=== PATIENT | male | born 1985 | race Caucasian/White ===

== ENCOUNTER 2017-02-17 14:32 | Emergency (ER) | payer OTHER ==
[~2017-02-17] VITALS: Ht 177.8 cm; Wt 80.0 kg
[~2017-02-17 14:32] MED LIST: OMEG100037 PO; PROM25SU8 PO; VIST50CA PO; [UNRECOGNIZED DRUG - OTHER] PO
[2017-02-17 14:34] VITALS: BP 117/64; PULSE 93; RESP 18; TEMP 97.4; O2SAT 97
[2017-02-17] MEDS ORDERED: SODIUM CHLORIDE 0.9% FLUSH 10 ML FLUSH IV FLUSH PRN (15:45)
[2017-02-17 16:16] VITALS: O2SAT 99
[2017-02-17 16:17] LABS: AUTOMATED NEUTROPHIL # 2.9 TH/MM3 (1.8-7.7); BASOPHIL % 0.7 % (0.0-2.0); EOSINOPHIL # 0.2 TH/MM3 (0-0.4); EOSINOPHIL % 2.4 % (0.0-4.0); HEMATOCRIT 44.1 % (39.0-51.0); HEMO FLAGS DIFF FINAL; LYMPH % 47.2 % (9.0-44.0); LYMPHOCYTE # 3.4 TH/MM3 (1.0-4.8); MEAN CELL VOLUME 86.1 FL (80.0-100.0); MEAN CORPUSCULAR HEMOGLOBIN 30.6 PG (27.0-34.0); MEAN CORPUSCULAR HGB CONC 35.5 % (32.0-36.0); MONO % 9.7 % (0.0-8.0); PLATELET COUNT 226 TH/MM3 (150-450); RED BLOOD COUNT 5.12 MIL/MM3 (4.50-5.90); RED CELL DISTRIBUTION WIDTH 13.3 % (11.6-17.2); WHITE BLOOD COUNT 7.2 TH/MM3 (4.0-11.0)
[2017-02-17 16:33] LABS: ALKALINE PHOSPHATASE 57 U/L (45-117); TOTAL BILIRUBIN ADULT 0.4 MG/DL (0.2-1.0)
[2017-02-17 16:35] LABS: ALT (GPT) 22 U/L (12-78); ANION GAP 7 MEQ/L (5-15); AST (GOT) 23 U/L (15-37); BLOOD UREA NITROGEN 12 MG/DL (7-18); CHLORIDE 105 MEQ/L (98-107); GLOMERULAR FILTRATION RATE 104 ML/MIN (>89); POTASSIUM 4.5 MEQ/L (3.5-5.1); SODIUM (NA) 141 MEQ/L (136-145)
--- NOTE | 2017-02-17 17:25 | PD ---
HPI Chief Complaint: GI Complaint Time Seen by Provider: 16:57 Travel History International Travel<30 days: No Contact w/Intl Traveler<30days: No History of Present Illness HPI Patient is a 31-year-old male comes in complaining of intractable hiccups. He says happened him once before about a year and a half ago, and lasted 10 days. He says currently he is had hiccups for the past 2 days and he is very worried. He says he wants to know the cause of his hiccups. He says he had an episode of nausea prior to this starting, but since then has otherwise been asymptomatic. He is not having any pain. He denies any chest pain or shortness of breath. He has no medical problems and takes no medications. PFSH Past Medical History Medical History: Denies Significant Hx Hx Anticoagulant Therapy: No Autoimmune Disease: No Blood Disorders: No Anxiety: No Depression: No Cancer: No Cardiovascular Problems: No Chemotherapy: No Cerebrovascular Accident: No Diabetes: No Diminished Hearing: No Endocrine: No Gastrointestinal Disorders: Yes (HX OF IRRITABLE BOWEL SYND) Genitourinary: No Musculoskeletal: No Neurologic: No Psychiatric: No Respiratory: No Immunizations Current: Yes Past Surgical History Surgical History: No Previous Surgery Social History Alcohol Use: No Tobacco Use: No (/2 ppd) Substance Use: No Allergies-Medications (Allergen,Severity, Reaction): Coded Allergies: No Known Allergies (Verified , 02/17/17) Reported Meds & Prescriptions Reported Meds & Active Scripts Active No Active Prescriptions or Reported Medications Review of Systems Except as stated in HPI: all other systems reviewed are Neg General / Constitutional: No: Fever, Chills Eyes: No: Blurred Vision HENT: No: Headaches, Lightheadedness Cardiovascular: No: Chest Pain or Discomfort Respiratory: No: Shortness of Breath Gastrointestinal: Positive: Nausea, No: Vomiting, Abdominal Pain Skin: No Rash Neurologic: No: Weakness, Dizziness Physical Exam Narrative GENERAL: Awake and alert, in no acute distress. SKIN: Focused skin assessment warm/dry. HEAD: Atraumatic. Normocephalic. EYES: Pupils equal and round. No scleral icterus. ENT: Mucous membranes pink and moist. NECK: Trachea midline. No JVD. CARDIOVASCULAR: Regular rate and rhythm. No murmur appreciated. RESPIRATORY: No accessory muscle use. Clear to auscultation. Breath sounds equal bilaterally. GASTROINTESTINAL: Abdomen soft, non-tender, nondistended. MUSCULOSKELETAL: No obvious deformities. No clubbing. No cyanosis. No edema. NEUROLOGICAL: Awake and alert. No obvious cranial nerve deficits. Motor grossly within normal limits. Normal speech. PSYCHIATRIC: Appropriate mood and affect; insight and judgment normal. Data Data Last Documented VS Vital Signs Date Time Temp Pulse Resp B/P Pulse Ox O2 Delivery O2 Flow Rate FiO2 02/17/17 16:16 99 Room Air 02/17/17 14:34 97.4 93 18 117/64 Orders Complete Blood Count With Diff (02/17/17 15:37) Comprehensive Metabolic Panel (02/17/17 15:37) Lipase (02/17/17 15:37) Iv Access Insert/Monitor (02/17/17 15:37) Ecg Monitoring (02/17/17 15:37) Oximetry (02/17/17 15:37) Sodium Chloride 0.9% Flush (Ns Flush) (02/17/17 15:45) Electrocardiogram (02/17/17 15:37) Troponin I (02/17/17 15:37) Chlorpromazine Inj (Thorazine Inj) (02/17/17 17:30) Labs Laboratory Tests Test 02/17/17 15:47 White Blood Count 7.2 TH/MM3 Red Blood Count 5.12 MIL/MM3 Hemoglobin 15.7 GM/DL Hematocrit 44.1 % Mean Corpuscular Volume 86.1 FL Mean Corpuscular Hemoglobin 30.6 PG Mean Corpuscular Hemoglobin 35.5 % Concent Red Cell Distribution Width 13.3 % Platelet Count 226 TH/MM3 Mean Platelet Volume 8.6 FL Neutrophils (%) (Auto) 40.0 % Lymphocytes (%) (Auto) 47.2 % Monocytes (%) (Auto) 9.7 % Eosinophils (%) (Auto) 2.4 % Basophils (%) (Auto) 0.7 % Neutrophils # (Auto) 2.9 TH/MM3 Lymphocytes # (Auto) 3.4 TH/MM3 Monocytes # (Auto) 0.7 TH/MM3 Eosinophils # (Auto) 0.2 TH/MM3 Basophils # (Auto) 0.0 TH/MM3 CBC Comment DIFF FINAL Differential Comment Sodium Level 141 MEQ/L Potassium Level 4.5 MEQ/L Chloride Level 105 MEQ/L Carbon Dioxide Level 29.0 MEQ/L Anion Gap 7 MEQ/L Blood Urea Nitrogen 12 MG/DL Creatinine 0.85 MG/DL Estimat Glomerular Filtration 104 ML/MIN Rate Random Glucose 93 MG/DL Calcium Level 8.9 MG/DL Total Bilirubin 0.4 MG/DL Aspartate Amino Transf 23 U/L (AST/SGOT) Alanine Aminotransferase 22 U/L (ALT/SGPT) Alkaline Phosphatase 57 U/L Troponin I LESS THAN 0.02 NG/ML Total Protein 7.1 GM/DL Albumin 3.8 GM/DL Lipase 160 U/L MDM Medical Decision Making Medical Screen Exam Complete: Yes Emergency Medical Condition: Yes Medical Record Reviewed: Yes Interpretation(s) ECG shows [address] elevation in leads 2, 3, aVF, no reciprocal changes Differential Diagnosis Intractable hiccups versus electrolyte abnormality versus ACS Narrative Course Patient is a 31-year-old male comes in complaining of hiccups. Exam shows no acute abnormalities. IV established, labs sent. ECG performed shows minimal elevation in leads 2, 3, aVF. I spoke with Dr. Alva of cardiology, regarding the EKG findings. He suggests a repeat troponin and EKG in 4-6 hours. If the troponin remains negative, he can safely be discharged home to follow-up with his primary care doctor. Patient offered Thorazine for his hiccups, he does not want that at this time. Patient signed out to Dr. Hammond to follow up repeat labs and disposition the patient. Scripts No Active Prescriptions or Reported Meds Cece Pastrana MD Feb 17, 2017 17:25
[2017-02-17 18:00] VITALS: BP 115/61; PULSE 77; RESP 18; O2SAT 99
--- NOTE | 2017-02-17 18:09 | PD ---
Physical Exam Date Seen by Provider: Feb 17, 2017 Narrative Care was assumed from Dr. Gaytan is 5 PM. This patient is scheduled for a repeat troponin in a couple of hours. If the repeat troponin is negative, he can go home. The patient is here with intractable hiccups. Or the hiccups and I have ordered Thorazine. Apparently, he refused Thorazine earlier. Data Data Last Documented VS Vital Signs Date Time Temp Pulse Resp B/P Pulse Ox O2 Delivery O2 Flow Rate FiO2 02/17/17 18:00 77 18 115/61 99 Room Air 02/17/17 14:34 97.4 Orders Complete Blood Count With Diff (02/17/17 15:37) Comprehensive Metabolic Panel (02/17/17 15:37) Lipase (02/17/17 15:37) Iv Access Insert/Monitor (02/17/17 15:37) Ecg Monitoring (02/17/17 15:37) Oximetry (02/17/17 15:37) Sodium Chloride 0.9% Flush (Ns Flush) (02/17/17 15:45) Electrocardiogram (02/17/17 15:37) Troponin I (02/17/17 15:37) Chlorpromazine Inj (Thorazine Inj) (02/17/17 17:30) ^ Other Nursing Orders (02/17/17 18:11) Troponin I (02/17/17 20:45) Labs Laboratory Tests Test 02/17/17 02/17/17 15:47 20:15 White Blood Count 7.2 TH/MM3 Red Blood Count 5.12 MIL/MM3 Hemoglobin 15.7 GM/DL Hematocrit 44.1 % Mean Corpuscular Volume 86.1 FL Mean Corpuscular Hemoglobin 30.6 PG Mean Corpuscular Hemoglobin 35.5 % Concent Red Cell Distribution Width 13.3 % Platelet Count 226 TH/MM3 Mean Platelet Volume 8.6 FL Neutrophils (%) (Auto) 40.0 % Lymphocytes (%) (Auto) 47.2 % Monocytes (%) (Auto) 9.7 % Eosinophils (%) (Auto) 2.4 % Basophils (%) (Auto) 0.7 % Neutrophils # (Auto) 2.9 TH/MM3 Lymphocytes # (Auto) 3.4 TH/MM3 Monocytes # (Auto) 0.7 TH/MM3 Eosinophils # (Auto) 0.2 TH/MM3 Basophils # (Auto) 0.0 TH/MM3 CBC Comment DIFF FINAL Differential Comment Sodium Level 141 MEQ/L Potassium Level 4.5 MEQ/L Chloride Level 105 MEQ/L Carbon Dioxide Level 29.0 MEQ/L Anion Gap 7 MEQ/L Blood Urea Nitrogen 12 MG/DL Creatinine 0.85 MG/DL Estimat Glomerular Filtration 104 ML/MIN Rate Random Glucose 93 MG/DL Calcium Level 8.9 MG/DL Total Bilirubin 0.4 MG/DL Aspartate Amino Transf 23 U/L (AST/SGOT) Alanine Aminotransferase 22 U/L (ALT/SGPT) Alkaline Phosphatase 57 U/L Troponin I LESS THAN 0.02 LESS THAN 0.02 NG/ML NG/ML Total Protein 7.1 GM/DL Albumin 3.8 GM/DL Lipase 160 U/L [facility] Supervised Visit with MARIAMA: No Narrative Course Repeat troponin is less than 0.02. He will be discharged to home. Diagnosis Primary Impression: Intractable hiccups Additional Impression: Abnormal EKG Patient Instructions: General Instructions, Hiccups (DC) Med/Other Pt SpecificInfo: Prescription(s) given Scripts Chlorpromazine 25 Mg Tab50 Mg PO Q4H PRN (hiccups) #10 TAB Ref 0 Prov:Radha Hammond MD 02/17/17 Radha Hammond MD Feb 17, 2017 18:09
[2017-02-17] MEDS ORDERED: CHLO25TA38 PO (20:53)
--- NOTE | 2017-02-18 08:55 | MB ---
cc: BERTHA RIDER MD DATE OF CONSULTATION: 02/18/2017. REASON FOR CONSULTATION: Abnormal EKG. 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 The patient had one episode similar to this about 19 months ago where he had intractable hiccups for nineteen days. He does say he intermittently gets hiccups every time he eats. As part of his workup for this episode of intractable hiccups, he received an EKG which showed inferior S-T elevations. He has absolutely no chest pain or shortness of breath. In fact, as I am interviewing the patient, he is not even having hiccups at this moment, though he says they come fairly intermittently with respites lasting up to an hour. He is completely [id number]. He has no chest pain, shortness of breath, lightheadedness or dizziness. His only risk factor is ongoing tobacco use and a family history of coronary artery disease, though not premature coronary artery disease. PAST MEDICAL HISTORY: 1. Intractable hiccups. 2. Tobacco abuse. HOME MEDICATIONS: None. PHYSICAL EXAMINATION: VITAL SIGNS: Afebrile, pulse 93, respiratory rate 18, blood pressure 117/64, satting 99 on room air. GENERAL: A very pleasant well-appearing young gentleman in no distress. NECK: No jugular venous distention. LUNGS: Clear to auscultation bilaterally. CARDIOVASCULAR: Regular rate and rhythm. No murmurs appreciated. ABDOMEN: Benign. EXTREMITIES: No edema. LABORATORY DATA: Sodium 141, potassium 4.5, chloride 105, bicarbonate 29.0, BUN 12, creatinine 0.85, glucose 93. Cardiac enzymes are negative x1. White count 7.2, hematocrit 44.1, platelets of 226,000. EKGS: EKG shows sinus rhythm with slight inferior S-T elevations and also J-point elevations in the precordial leads. IMPRESSION: 1. S-T elevations. These appear to be most consistent with early repolarization type S-T elevations. Pericarditis might be a concern; however, he has absolutely no chest discomfort which would make that diagnosis extremely unlikely. His first set of cardiac enzymes is normal. I have asked the emergency room staff to obtain a four-hour troponin as well as a repeat EKG. If his repeat troponin and EKG are normal / unchanged, I am comfortable with him being discharged home to follow up in my office. Again, his hiccups have been ongoing for the last two days and if this were an anginal equivalent, we certainly would have expected troponins to be positive by now. Thank you again for the opportunity to participate in this patient's care. MD REDD Olivier/ARNIE /6:16 PM /8:59 AM
--- NOTE | 2017-02-18 20:00 | EKG ---
Date Performed: 02/17/2017 Time Performed: 16:26:09 PTAGE: 31 years EKG: Sinus rhythm BORDERLINE RIGHT AXIS DEVIATION ST ELEVATION, PROBABLY EARLY REPOLARIZATION BORDERLINE ECG PREVIOUS TRACING : 02/17/2017 15.56 Since previous tracing, no significant change noted DOCTOR: Carlos Em Interpretating Date/Time 02/18/2017 19:59:56
--- NOTE | 2017-02-18 20:00 | EKG ---
Date Performed: 02/17/2017 Time Performed: 15:56:50 PTAGE: 31 years EKG: Sinus rhythm BORDERLINE RIGHT AXIS DEVIATION ST ELEVATION, CONSIDER INFERIOR INJURY ACUTE AL NO PREVIOUS TRACING DOCTOR: Carlos Em Interpretating Date/Time 02/18/2017 19:59:34
== END 2017-02-17 21:45 | disposition home or self-care (01) ==
LOC: NEPD 14:32
DX: R06.6 Hiccough (principal); R94.31 Abnormal electrocardiogram [ECG] [EKG]; R11.0 Nausea; F17.200 Nicotine dependence, unspecified, uncomplicated; Z72.0 Tobacco use
CPT/HCPCS: 80053; 83690; 84484; 85025; 93005; 96372; 99284; J3230